=== PATIENT | female | born 1960 | race Asian ===

== ENCOUNTER 2016-09-30 13:02 | Emergency (ER) | payer OTHER ==
[~2016-09-30] VITALS: Ht 154.9 cm; Wt 45.8 kg
[2016-09-30] MEDS ORDERED: SODIUM CHLORIDE 0.9% 1,000ML IVBOLUS ONE (14:30)
[2016-09-30] MEDS ORDERED: MECLIZINE CHEWABLE 25 MG TAB PO ONE (14:30)
[2016-09-30] MEDS ORDERED: SODIUM CHLORIDE FLUSH 10ML SYR IVF ONE (14:30)
[2016-09-30] MEDS ORDERED: MECLIZINE CHEWABLE 25 MG TAB ONE (14:35)
[2016-09-30 14:42] VITALS: BP 170/92
[2016-09-30 14:57] LABS: BLOOD UREA NITROGEN 16 mg/dL (7-18)
== END 2016-09-30 15:21 | disposition home or self-care (01) ==
LOC: ED 15:15
DX: H81.393 Other peripheral vertigo, bilateral (principal)
CPT/HCPCS: 36415; 70450; 80048; 82040; 85025; 93005; 96360; 99285; J7030